=== PATIENT | female | born 1985 | race Caucasian/White ===

== ENCOUNTER → 2023-07-05 | Outpatient (CLI) | payer SELFPAY ==
[~2023-07-05] MED LIST: ACET-2267 PO; CEFD300C3 PO; KETO10TA PO; ONDA4TAB11 SL; OXYC5TAB PO; TMSL.4C PO
--- NOTE | 2023-07-05 13:36 | Diagnostic Imaging Report ---
EXAMINATION: Abdomen 1 view HISTORY: Renal stone COMPARISON: None available. FINDINGS: There is a right-sided nephroureteral stent. No calcifications are seen projecting over the course of the right ureter. Intrauterine device is present. No dilated bowel. IMPRESSION: 1. Right-sided nephroureteral stent is in the expected location. Dictated by: Dictated on workstation # [id number]
== END ==
LOC: RAD FS 12:46
PROVIDERS: ATTEND Urology
DX: N20.0 Calculus of kidney (principal); Z96.0 Presence of urogenital implants
CPT/HCPCS: 74018